=== PATIENT | male | born 1940 | race Caucasian/White ===

== ENCOUNTER 2016-11-05 21:28 | Emergency (ER) | payer MEDICARE ==
[~2016-11-05 21:28] MED LIST: COZA50TA PO; TRAM50TA PO; ZOCO40TA PO
[2016-11-05 21:32] VITALS: BP 175/81; PULSE 64; RESP 15; TEMP 98.2; O2SAT 96
[2016-11-05 23:48] VITALS: BP 210/91; PULSE 62; RESP 16; O2SAT 98
[2016-11-05] MEDS ORDERED: GLIM1TAB PO (23:50)
[2016-11-05] MEDS ORDERED: SIMV40TA PO (23:50)
[2016-11-05] MEDS ORDERED: LOSA50TA PO (23:50)
--- NOTE | 2016-11-06 00:02 | PD ---
HPI Chief Complaint: GI Complaint Time Seen by Provider: 23:42 Travel History International Travel<30 days: No Contact w/Intl Traveler<30days: No Traveled to known affect area: No History of Present Illness HPI Is a 76-year-old man, otherwise fairly healthy, underwent a hemorrhoidectomy with infrared coagulation on the with Dr. Selby. He is doing well with just a little bit of spotting when today he had copious bright red blood per rectum. No significant pain. Otherwise had been doing well. Does seem that he describes a large volume of blood. Denies any blood thinners. 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 SKIN: Focused skin assessment warm/dry. EYES: Pupils equal and round. No scleral icterus. No injection or drainage. No pallor. CARDIOVASCULAR: Heart rates a little bit irregular. RESPIRATORY: No accessory muscle use. Clear to auscultation. Breath sounds equal bilaterally. GASTROINTESTINAL: Abdomen soft, non-tender, nondistended. Hepatic and splenic margins not palpable. MUSCULOSKELETAL: No obvious deformities. No clubbing. No cyanosis. No edema. NEUROLOGICAL: Awake and alert. No obvious cranial nerve deficits. Motor grossly within normal limits. Normal speech. Data Data Last Documented VS Vital Signs Date Time Temp Pulse Resp B/P (MAP) Pulse Ox O2 Delivery O2 Flow Rate FiO2 11/06/16 00:20 64 16 137/63 (87) 95 Room Air 11/05/16 21:32 98.2 Orders Orders Complete Blood Count With Diff (11/05/16 23:27) Comprehensive Metabolic Panel (11/05/16 23:27) Act Partial Throm Time (Ptt) (11/05/16 23:27) Prothrombin Time / Inr (Pt) (11/05/16 23:27) Iv Access Insert/Monitor (11/05/16 23:27) Type And Screen (11/05/16 23:27) Labs Laboratory Tests Test 11/05/16 23:40 White Blood Count 12.7 TH/MM3 Red Blood Count 4.51 MIL/MM3 Hemoglobin 13.4 GM/DL Hematocrit 40.3 % Mean Corpuscular Volume 89.4 FL Mean Corpuscular Hemoglobin 29.8 PG Mean Corpuscular Hemoglobin Concent 33.3 % Red Cell Distribution Width 14.5 % Platelet Count 201 TH/MM3 Mean Platelet Volume 8.5 FL Neutrophils (%) (Auto) 57.7 % Lymphocytes (%) (Auto) 25.4 % Monocytes (%) (Auto) 7.6 % Eosinophils (%) (Auto) 8.3 % Basophils (%) (Auto) 1.0 % Neutrophils # (Auto) 7.3 TH/MM3 Lymphocytes # (Auto) 3.2 TH/MM3 Monocytes # (Auto) 1.0 TH/MM3 Eosinophils # (Auto) 1.1 TH/MM3 Basophils # (Auto) 0.1 TH/MM3 CBC Comment DIFF FINAL Differential Comment Prothrombin Time 9.9 SEC Prothromb Time International Ratio 0.9 RATIO Activated Partial Thromboplast Time 26.2 SEC Blood Urea Nitrogen 23 MG/DL Creatinine 1.33 MG/DL Random Glucose 103 MG/DL Total Protein 7.4 GM/DL Albumin 3.7 GM/DL Calcium Level 8.7 MG/DL Alkaline Phosphatase 90 U/L Aspartate Amino Transf (AST/SGOT) 29 U/L Alanine Aminotransferase (ALT/SGPT) 28 U/L Total Bilirubin 0.8 MG/DL Sodium Level 139 MEQ/L Potassium Level 4.0 MEQ/L Chloride Level 106 MEQ/L Carbon Dioxide Level 25.8 MEQ/L Anion Gap 7 MEQ/L Estimat Glomerular Filtration Rate 53 ML/MIN MDM Medical Decision Making Medical Screen Exam Complete: Yes Emergency Medical Condition: Yes Interpretation(s) LABS: CBC remarkable for mild leukocytosis. CMP remarkable for mildly elevated BUN/creatinine. Coags unremarkable. Differential Diagnosis Bleeding following hemorrhoid surgery, anemia, other Narrative Course Medical decision-making this is a well 76 year-old woman who presents with some rectal bleeding following a coagulation of a hemorrhoid. He looks well. Doesn't appear especially anemic. We'll check labs. Reassess. Diagnosis Primary Impression: Rectal bleeding Additional Instructions: Consider sitz baths twice daily. Take Colace as prescribed. Follow-up with your GI doctor as scheduled. Expect a little bit more bleeding over the next couple days. Return to the emergency department for any copious bleeding that does not stop, lightheadedness or dizziness, or any other new or worsening symptoms. Med/Other Pt SpecificInfo: Prescription(s) given Scripts Docusate Sodium (Docusate Sodium) 100 Mg Cap 100 MG PO BID for Prevent Constipation, #20 CAP 0 Refills Prov: Arun Avery MD 11/06/16 Disposition: 01 DISCHARGE HOME Condition: Stable Arun Avery MD Nov 06, 2016 00:02
[2016-11-06 00:13] LABS: AUTOMATED NEUTROPHIL # 7.3 TH/MM3 (1.8-7.7); BASOPHIL # 0.1 TH/MM3 (0-0.2); EOSINOPHIL # 1.1 TH/MM3 (0-0.4); EOSINOPHIL % 8.3 % (0.0-4.0); HEMATOCRIT 40.3 % (39.0-51.0); HEMO FLAGS DIFF FINAL; LYMPH % 25.4 % (9.0-44.0); LYMPHOCYTE # 3.2 TH/MM3 (1.0-4.8); MEAN CELL VOLUME 89.4 FL (80.0-100.0); MEAN CORPUSCULAR HEMOGLOBIN 29.8 PG (27.0-34.0); MEAN CORPUSCULAR HGB CONC 33.3 % (32.0-36.0); MONO % 7.6 % (0.0-8.0); NEUT % 57.7 % (16.0-70.0); PLATELET COUNT 201 TH/MM3 (150-450); RED BLOOD COUNT 4.51 MIL/MM3 (4.50-5.90); RED CELL DISTRIBUTION WIDTH 14.5 % (11.6-17.2); WHITE BLOOD COUNT 12.7 TH/MM3 (4.0-11.0)
[2016-11-06 00:20] VITALS: BP 137/63; PULSE 64; RESP 16; O2SAT 95
[2016-11-06 00:23] LABS: INTERNATIONAL NORMALIZED RATIO 0.9 RATIO; PROTHROMBIN TIME - PATIENT 9.9 SEC (9.8-11.6)
[2016-11-06 00:25] LABS: ALKALINE PHOSPHATASE 90 U/L (45-117); ALT (GPT) 28 U/L (12-78); ANION GAP 7 MEQ/L (5-15); AST (GOT) 29 U/L (15-37); BICARBONATE 25.8 MEQ/L (21.0-32.0); BLOOD UREA NITROGEN 23 MG/DL (7-18); CHLORIDE 106 MEQ/L (98-107); GLOMERULAR FILTRATION RATE 53 ML/MIN (>89); SODIUM (NA) 139 MEQ/L (136-145); TOTAL BILIRUBIN ADULT 0.8 MG/DL (0.2-1.0)
[2016-11-06 00:27] LABS: APTT (PATIENT) 26.2 SEC (24.3-30.1)
[2016-11-06] MEDS ORDERED: DOCU100C PO (00:59)
[2016-11-06 01:12] VITALS: BP 164/74
== END 2016-11-06 01:22 | disposition home or self-care (01) ==
LOC: NEPC 21:28
DX: K62.5 Hemorrhage of anus and rectum (principal)
CPT/HCPCS: 80053; 85025; 85610; 85730; 86850; 86900; 86901; 99283